=== PATIENT | female | born 1940 | race Caucasian/White ===

== ENCOUNTER → 2022-09-17 10:00 | Outpatient (CLI) | payer MEDICARE, OTHER, SELFPAY ==
--- NOTE | 2022-09-17 10:08 | DI.RAD.S_ITS ---
PROCEDURE: XR LUMBAR SPINE MIN 4V INDICATIONS: BACK PAIN TECHNIQUE: 5 views of the lumbar spine were acquired, including bilateral oblique views. COMPARISON: [facility] Outside [facility], MR, MR LUMBAR SPINE WITHOUT CONTRAST, 11/30/2020, 8:46. FINDINGS: Bones: 5 nonrib-bearing vertebrae are present. There is normal bony alignment. There is a stable moderate wedge compression fracture involving T12. No suspicious bony lesions. There is moderate diffuse degenerative disc disease present L1-L2 through L4-L5. Atherosclerotic vascular calcifications are noted. Soft tissues: Overlying bowel gas pattern is normal. No suspicious soft tissue calcifications. Oblique images: No pars defects. IMPRESSION: 1. No evidence for acute osseous abnormality identified. 2. Moderate stable wedge compression fracture T12. 3. Moderate degenerative disc disease present L1-L2 through L4-L5. Dictated by: Johan Bueno M.D. on 09/17/2022 at 14:07 Approved by: Johan Bueno M.D. on 09/17/2022 at 14:10
== END ==
PROVIDERS: Referring Provider Anesthesiology; Visit Provider Anesthesiology
DX: M51.36 Other intervertebral disc degeneration, lumbar region (principal); M48.54XA Collapsed vertebra, not elsewhere classified, thoracic region, initial encounter for fracture; M54.9 Dorsalgia, unspecified
CPT/HCPCS: 72110

== ENCOUNTER → 2022-09-17 12:56 | Outpatient (CLI) | payer MEDICARE, OTHER, SELFPAY ==
--- NOTE | 2022-09-17 12:58 | DI.US.S_ITS ---
PROCEDURE: US PERIPH VENOUS LOW EXTREM RT INDICATIONS: Right lower extremity pain, swelling. R/O DVT TECHNIQUE: Real-time imaging, as well as color and pulse Doppler interrogation, were performed of the lower extremity deep veins from the inguinal ligament to the popliteal fossa. COMPARISON: None. FINDINGS: The common femoral, femoral and popliteal veins are normally compressible, and free of intraluminal thrombus. Color and pulse Doppler demonstrate normal phasic intraluminal flow. There is normal augmentation response to distal compression maneuver. IMPRESSION: No DVT in the right lower extremity. Dictated by: Fidel De La Cruz M.D. on 09/17/2022 at 13:32 Approved by: Fidel De La Cruz M.D. on 09/17/2022 at 13:54
== END ==
PROVIDERS: PCP Family Medicine; Referring Provider Anesthesiology; Visit Provider Anesthesiology
DX: M79.604 Pain in right leg (principal); M51.36 Other intervertebral disc degeneration, lumbar region; M48.54XA Collapsed vertebra, not elsewhere classified, thoracic region, initial encounter for fracture; M54.9 Dorsalgia, unspecified; M54.50 Low back pain, unspecified
CPT/HCPCS: 72110; 93971; 99214

== ENCOUNTER 2022-10-15 11:31 | Outpatient (CLI) | payer MEDICARE, OTHER, SELFPAY ==
--- NOTE | 2022-10-15 11:33 | DI.RAD.S_ITS ---
PROCEDURE: PAIN L/S TRANSFORAMINAL INJECT INDICATIONS: SACROILIAC DYSFUNCTION COMPARISON: None. FINDINGS: Fluoroscopic spot filming was performed to verify placement of spinal needles at the right S1 foramen level(s), as labeled on the films. Appropriate location(s) of the needle tip(s) was confirmed by injection of iodinated contrast. IMPRESSION: Intraoperative fluoroscopy for right S1 transforaminal epidural steroid injection. Dictated by: Sushma Gleason M.D. on 10/15/2022 at 17:40 Approved by: Sushma Gleason M.D. on 10/15/2022 at 17:41
[2022-10-15 13:15] VITALS: BP 205/95; PULSE 108; RESP 20; TEMP 36.9; O2SAT 97
--- NOTE | 2022-10-15 13:24 | PC.NURSE ---
Patient hypertensive and tachycardic. Dr. Appiah aware. Awaiting decision to proceed with procedure.
[2022-10-15 13:36] VITALS: BP 226/105; PULSE 105; RESP 22; O2SAT 98
[2022-10-15 13:41] VITALS: BP 183/81; PULSE 100; RESP 18; O2SAT 98
[2022-10-15 13:45] VITALS: BP 186/81; PULSE 100; RESP 20; O2SAT 99
[2022-10-15] MEDS: IOPAMIDOL 15 ML VIAL 3 ML INJ (13:47)
[2022-10-15] MEDS: BUPIVACAINE 0.25% (PF) VIAL 5 ML SUBCUT (13:47)
[2022-10-15 13:48] VITALS: BP 185/81; PULSE 99; RESP 15; O2SAT 99
[2022-10-15] MEDS: DEXAMETHASONE 10 MG/ML VIAL 20 MG INJ (13:48)
--- NOTE | 2022-10-15 13:55 | P.PCN_ITS ---
Date/Time/Diagnoses Date of procedure: 10/15/22 Time of procedure: 13:55 Pre-procedure diagnosis: Lumbar radiculopathy Post-procedure diagnosis: same Procedure Notes Procedure: Right S1 Transforaminal Epidural Steroid Injection Indications: Radha is referred by Dr. Bains for treatment of lumbar radiculopathy with right leg pain. Physician: Cory Appiah Total Fluoroscopy time (seconds): 18 Total sedation minutes: 0 Procedure in detail & Post-procedure care: Right S1 Transforaminal Epidural Steroid Injection Chief Complaint: Right leg pain Interval changes in history/medications/system review: Unchanged since last visit. Allergies: Amoxicillin Anticoagulants: none Focused Examination: Ax3 Mood and affect are normal Vital Signs: VSS Consent: Following review of allergies and potential side effects/complications, including, but not necessarily limited to, infection, allergic reaction, local tissue breakdown, stroke, temporary or permanent nerve injury, paralysis, and possible , the patient indicated that the patient understood and agreed to proceed.? An informed consent document was signed by the patient, witnessed by a nurse, and placed in the patient's chart.? Additionally, other treatment options including medications, modalities, and physical therapy were reviewed with the patient. All questions were answered. Site was then marked. Position: Prone Anesthesia: Local Monitoring: NIBP, Pulse oximetry, 3 lead EKG Needle used: 22G 3.5 inch spinal needle Contrast: Isovue-M 300 2 mL Injectate: 15 mg Dexamethasone mixed with 0.25% Ropivacaine 1.5 ml Technique: The skin was prepped with chloraprep and draped in a sterile fashion. Time out was performed as per protocol. Oxygen applied via NC. Skin and subcutaneous structures of the needle entry site were infiltrated with 3mL of lidocaine 1%. Under fluoroscopic guidance, using an ipsilateral oblique view,?a 22 gauge 3.5 inch needle was advanced to the right S1 foramen.? The needle was advanced to the superior aspect of the neuroforamen.? Oblique and AP views were rechecked. No paresthesias noted by the patient during needle placement. In AP view and utilizing real-time fluoroscopy, 2 ml contrast was slowly injected. Epidural spread was observed without evidence for intravascular nor intrathecal uptake. On AP view, contrast spread was seen craniocaudally.?The above injectate was then administered and the needle was withdrawn. EBL: less than 1 ml Complications: None Post Procedure: Patient was taken to the recovery and monitored. The patient was provided a Pain Log to continue to record the patient's response to the target- specific procedure prior to the patient's follow-up visit with the referring physician. Patient was stable upon discharge. Detailed post procedure instructions were provided. Patient was asked to call in the event of worsening pain, fever, weakness, numbness or bladder or bowel incontinence.
[2022-10-15 14:00] VITALS: BP 166/75; PULSE 97; RESP 17; O2SAT 98
== END 2022-10-15 14:10 | disposition home or self-care (01) ==
LOC: RAD 11:32
PROVIDERS: PCP Family Medicine; Referring Provider Anesthesiology; Visit Provider Anesthesiology
DX: M54.17 Radiculopathy, lumbosacral region (principal)
CPT/HCPCS: 64483; J1100; J3490

== ENCOUNTER → 2023-05-19 11:34 | Outpatient (CLI) | payer MEDICARE, OTHER, SELFPAY ==
--- NOTE | 2023-05-19 | DI.MRI.S_ITS ---
PROCEDURE: MR LOWER LEG RT WO CON INDICATIONS: RIGHT LOWER LEG PAIN TECHNIQUE: Noncontrast coronal and sagittal T1 spin echo and STIR; axial T1 spin echo and T2 fast spin echo with fat saturation through the right lower leg. COMPARISON: Outside Facility, RG, XR TIB/FIB 2V RIGHT, 11/27/2022, 13:15. [facility], MR, MR KNEE RIGHT WITHOUT CONTRAST, 01/05/2023, 9:23. [facility] [place], CR, XR KNEE 4+ VIEWS RIGHT, 02/10/2023, 9:55. FINDINGS: Image quality: Excellent. Bones: The visualized bone marrow demonstrates normal signal on all sequences. The overlying cortex appears intact. No acute fractures lines or intra-osseous lesions. Soft tissues: Mild intramuscular edema at the distal aspect of the medial head of the gastrocnemius muscle and the medial portion of the soleus muscle, which is suspicious for low-grade muscle strains. The popliteus tendon is intact. Nonspecific subcutaneous soft tissue edema is seen throughout the lower leg, most prominently over the medial and lateral malleoli at the ankle with some anterior and lateral subcutaneous edema more superiorly. Similar edema is seen in the contralateral left lower leg on large [id number] coronal images. There is focal fatty infiltration versus intramuscular lipoma within the left medial head of the gastrocnemius muscle. A small right medial popliteal cyst is noted. The internal structures of the right knee and ankle are not well evaluated on this exam. No soft tissue mass. IMPRESSION: 1. Subtle intramuscular edema within the medial head of the gastrocnemius muscle and the medial portion of the soleus muscle, suspicious for low-grade muscle strains. 2. Mild nonspecific subcutaneous edema in the lower legs bilaterally, possibly representing dependent edema or edema from a systemic source. 3. No significant osseous abnormality. 4. Small medial popliteal cyst. Approved by: Saul Ortega M.D. on 05/19/2023 at 20:36
== END ==
PROVIDERS: PCP Family Medicine; Referring Provider Orthopaedic Surgery Foot and Ankle Surgery; Visit Provider Orthopaedic Surgery Foot and Ankle Surgery
DX: M84.30XA Stress fracture, unspecified site, initial encounter for fracture (principal); R60.0 Localized edema; M71.21 Synovial cyst of popliteal space [Baker], right knee
CPT/HCPCS: 73718

== ENCOUNTER → 2023-06-24 07:41 | Outpatient (CLI) | payer MEDICARE, OTHER, SELFPAY ==
--- NOTE | 2023-06-24 | DI.US.S_ITS ---
PROCEDURE: US ARTERIAL DUPLEX LE BI INDICATIONS: VASCULAR CLAUDICATION TECHNIQUE: Color and pulse Doppler interrogation was performed of both lower extremity arterial systems, with image documentation. COMPARISON: None. FINDINGS: Right lower extremity: Common femoral artery: 90.6 cm/sec, with biphasic flow. Deep femoral artery: 54.1 cm/sec, with biphasic flow. Proximal superficial femoral artery: 111.3 cm/sec, with biphasic flow. Mid superficial femoral artery: 72.0 cm/sec, with biphasic flow. Distal superficial femoral artery: 77.8 cm/sec, with biphasic flow. Popliteal artery: 69.9 cm/sec, with biphasic flow. Posterior tibial artery: 50.0 cm/sec, with biphasic flow. Anterior tibial artery/dorsalis pedis: 72.6 cm/sec, with biphasic flow. Romero-scale imaging description: Mild diffuse plaque Left lower extremity: Common femoral artery: 109.2 cm/sec, with biphasic flow. Deep femoral artery: 94.5 cm/sec, with biphasic flow. Proximal superficial femoral artery: 87.9 cm/sec, with biphasic flow. Mid superficial femoral artery: 81.6 cm/sec, with biphasic flow. Distal superficial femoral artery: 73.5 cm/sec, with biphasic flow. Popliteal artery: 62.9 cm/sec, with biphasic flow. Posterior tibial artery: 53.7 cm/sec, with biphasic flow. Anterior tibial artery/dorsalis pedis: 51.3 cm/sec, with biphasic flow. Romero-scale imaging description: Mild diffuse plaque IMPRESSION: Mild diffuse plaque with no significant stenosis by imaging or velocity/waveform criteria. Dictated by: Yuan Hooker M.D. on 06/24/2023 at 10:58 Approved by: Yuan Hooker M.D. on 06/24/2023 at 11:38
== END ==
PROVIDERS: PCP Family Medicine; Referring Provider Orthopaedic Surgery Foot and Ankle Surgery; Visit Provider Orthopaedic Surgery Foot and Ankle Surgery
DX: I73.9 Peripheral vascular disease, unspecified (principal)
CPT/HCPCS: 93925